=== PATIENT | male | born 1995 ===

== ENCOUNTER → 2020-10-01 | Outpatient (CLI) | payer OTHER ==
[2020-10-03 02:11] LABS: CHLAMYDIA TRACHOMATIS, NAA Negative (Negative)
== END | disposition home or self-care (01) ==
LOC: LAB 12:11 → LAB SHORT 12:11
PROVIDERS: Chiropractor
DX: J02.9 Acute pharyngitis, unspecified (principal); Z72.51 High risk heterosexual behavior
CPT/HCPCS: 87081; 87491; 87591